=== PATIENT | male | born 1980 | race Caucasian/White ===

== ENCOUNTER 2024-08-26 13:39 | Emergency (ER) | payer OTHER, SELFPAY ==
[2024-08-26 13:43] VITALS: BP 133/91
--- NOTE | 2024-08-26 15:01 | ED.GENMED ---
History of Present Illness
General
Chief Complaint: Musculo-Skeletal Complaint
Source: patient and spouse
Exam Limitations: none
Time Seen by Provider: 08/26/24 14:28
Nursing documentation reviewed up to this point in time: agreed with
History of Present Illness
History of Present Illness:
43-year-old male presenting to the emergency department after an injury to his left upper arm that occurred on the job. He claims he got tripped up and hit his left upper arm on a stack of wood. Moderate discomfort to the left upper arm and also
some discomfort to his ribs with heavy deep breaths and coughing. Denies any chest pain shortness of breath neck pain no discomfort to the right hand. Able to ambulate well.
Review of Systems
Review of Systems
Allergies reviewed?: Yes
All Other Systems: ROS reviewed and negative except as documented in HPI and ROS
Phy Exam
Physical Exam
Physical Exam:
GENERAL: Alert , in no apparent distress
EYE: pupils equal and reactive
NECK: Supple, no significant adenopathy.
ENT: o/p clr, mmm.
CARDIAC: Regular rate and rhythm .
LUNGS: Clear breath sounds bilaterally, no acute respiratory distress, no wheezes/rales/rhonchi
ABDOMEN: Soft, without focal tenderness, no r/g, no cvat
NEUROLOGICAL: Alert and oriented, no focal neuro deficits
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 No reproducible discomfort to the left lateral ribs.
Warm and dry, skin intact.
MUSCULOSKELETAL: Mild swelling and ecchymosis to left upper arm well perfused.
PSYCH: Normal and appropriate interaction.
Course
Orders/Labs/Results
Orders:
Orders
08/26/24 13:48
CR Humerus - Left Min 2 Views* Urgent
Comment:
Reason For Exam: Trauma
08/26/24 14:54
CR Ribs-left 3 Vw W/pa Chest Urgent
Comment:
Reason For Exam: left lateral ribs pain
08/26/24 15:12
Acetaminophen [Tylenol] 1,000 mg PO NOW STA
Ibuprofen [Motrin] 600 mg PO NOW STA
Vital Signs
Initial and Last Documented VS:
Initial Vital Signs
Temp Pulse Resp BP Pulse Ox
98.9 F 108 20 133/91 99
08/26/24 13:43 08/26/24 13:43 08/26/24 13:43 08/26/24 13:43 08/26/24 13:43
Last Documented Vital Signs
Temp Pulse Resp BP Pulse Ox
98.9 F 100 18 130/89 99
08/26/24 13:43 08/26/24 15:49 08/26/24 15:49 08/26/24 15:49 08/26/24 15:49
MDM/Problems Addressed
MDM/Problems Addressed:
44-year-old male presenting to the emergency department today with concerns of left upper arm discomfort after tripping and hitting his arm prior to arrival while at work. Increased discomfort any movement at this point. Normal distal pulses no
discomfort to the elbow shoulder or wrist. No significant breaks in the skin x-ray of the humerus without acute fracture. Otherwise patient stable for discharge return precautions given.
*Critical Care Note
Total Time (30-74mins, 75-104mins- exclusive of procedures): Not Applicable
ED Attending Note
-
Portions of this chart may have been created with voice recognition software.� Occasional wrong word or��sound alike� substitutions may have occurred due to the inherent limitations of voice recognition software.
Discharge Plan
Departure
Patient Disposition: Home (Routine Discharge)
Date of Disposition: 08/26/24
Time of Disposition: 15:38
Patient with high blood pressure during this ER visit?: No
Condition: Good
Covid-19: Not Applicable
Discharge Problem:
Contusion of arm, left, Contusion of rib
Instructions: Muscle and Bone Pain (DC)
Stand Alone Forms: Return to Work
Activity Restrictions/Additional Instructions:
You came to the emergency department today after an injury. Here no evidence of fracture or emergent complications. You likely have soft tissue injury. Please rest the area as symptoms will hopefully improve over the next 2 days. Please follow
closely with a primary care doctor within 1 to 2 weeks if symptoms are persisting. Return for any worsening, new or concerning symptoms.
Interventions
Interventions:
*Risk Screen - Suicide Last Done: 08/26/24 13:55
*General Assessment Last Done: 08/26/24 13:55
*Neglect/Abuse Screening Last Done: 08/26/24 13:55
*ED COVID-19 Vaccine History Last Done: 08/26/24 14:01
*Nursing Disposition Last Done: 08/26/24 15:49
ED-Musculoskeletal Assessment Last Done: 08/26/24 13:55
Discharge Date and Time
Discharge Date/Time: 08/26/24 16:01
Print Language: INDONESIAN
[2024-08-26] MEDS: TYLENOL 1000 MG PO (15:20)
[2024-08-26] MEDS: MOTRIN 600 MG PO (15:20)
[2024-08-26 15:49] VITALS: BP 130/89
== END 2024-08-26 16:01 | disposition home or self-care (01) ==
LOC: EMR 13:39
PROVIDERS: EMERGENCY PHYSICIAN Emergency Medicine; FAMILY PHYSICIAN Family Medicine
DX: S40.022A Contusion of left upper arm, initial encounter (principal); S20.212A Contusion of left front wall of thorax, initial encounter; W22.8XXA Striking against or struck by other objects, initial encounter; Y99.0 Civilian activity done for income or pay
CPT/HCPCS: 99283; 71101; 73060